=== PATIENT | female | born 1985 | race African-American/Black ===

== ENCOUNTER → 2020-10-13 | Outpatient (CLI) | payer OTHER ==
--- NOTE | 2020-10-13 13:06 | RAD ---
EXAM: Pelvic sonogram. HISTORY: Vaginitis. Pelvic pain. TECHNIQUE: Transabdominal sonographic imaging of the pelvis was performed. COMPARISON: None. FINDINGS: The uterus measures 8.6 x 4.5 x 3.0 cm. The endometrial stripe measures 2.5 mm in thickness . There is a 4.6 cm right ovarian cyst. There is normal blood flow within the surrounding right ovari an parenchyma. The left ovary is normal in size and demonstrates normal blood flow. There is no pelvi c free fluid. IMPRESSION: 1. 4.6 cm right ovarian cyst. 2. Otherwise, unremarkable pelvic sonogram. Electronically signed by: Catrina Cat MD (10/13/2020 1:03 PM) [id number]
== END ==
LOC: US 12:15
PROVIDERS: ATTEND Obstetrics & Gynecology
DX: Z01.411 Encounter for gynecological examination (general) (routine) with abnormal findings (principal); N76.0 Acute vaginitis; N83.291 Other ovarian cyst, right side
CPT/HCPCS: 76856